=== PATIENT | female | born 1950 | race Caucasian/White ===

== ENCOUNTER → 2016-04-06 | Day surgery (SDC) | payer MEDICARE, BC ==
[~2016-04-06] VITALS: Ht 167.6 cm; Wt 133.8 kg
[~2016-04-06] MED LIST: BENA25CA4 PO; DOXY50CA26 PO; EXCETAB81 PO; FAMO40TA3 PO; LIDOCAINE 2% INJ 100 MG/5 ML SDV (FOR ANES.) As Ordered ONE; LR 1,000 ML IV SCH; MELO7.5T6 PO; NS 1,000 ML IV SCH; PROPOFOL 200 MG/20 ML VIAL As Ordered ONE
--- NOTE | 2016-04-06 16:23 | ROOR ---
Patient Name: Esther Vasquez Procedure Date: 04/06/2016 2:53 PM Date of : 1950 Age: 65 Gender: Female Note Status: Finalized Procedure: Upper GI endoscopy Indications: Heartburn Providers: Robert Barcenas DO Referring MD: Robert Barcenas DO Requesting Provider: Medicines: Propofol per Anesthesia Complications: No immediate complications. Procedure: Pre-Anesthesia Assessment: - Prior to the procedure, a History and Physical was performed, and patient medications and allergies were reviewed. The patient is competent. The risks and benefits of the procedure and the sedation options and risks were discussed with the patient. All questions were answered and informed consent was obtained. Patient identification and proposed procedure were verified by the physician, the nurse, the department clinician and the packaging technician in the procedure room. Mental Status Examination: alert and oriented. Airway Examination: normal oropharyngeal airway and neck mobility. Respiratory Examination: clear to auscultation. CV Examination: normal. Prophylactic Antibiotics: The patient does not require prophylactic antibiotics. Prior Anticoagulants: The patient has taken no previous anticoagulant or antiplatelet agents. ASA Grade Assessment: II - A patient with mild systemic disease. After reviewing the risks and benefits, the patient was deemed in satisfactory condition to undergo the procedure. The anesthesia plan was to use monitored anesthesia care (MAC). Immediately prior to administration of medications, the patient was re-assessed for adequacy to receive sedatives. The heart rate, respiratory rate, oxygen saturations, blood pressure, adequacy of pulmonary ventilation, and response to care were monitored throughout the procedure. The physical status of the patient was re-assessed after the procedure. The Endoscope was introduced through the mouth, and advanced to the second part of duodenum. The upper GI endoscopy was accomplished without difficulty. The patient tolerated the procedure well. Findings: Moderately severe esophagitis with bleeding was found. Biopsies were taken with a cold forceps for histology. Scattered mild inflammation characterized by adherent blood, congestion (edema) and erosions was found in the entire examined stomach. Biopsies were taken with a cold forceps for Helicobacter pylori testing. The exam was otherwise without abnormality. Impression: - Moderately severe reflux esophagitis. Biopsied. - Gastritis. Biopsied. - The examination was otherwise normal. Recommendation: - Patient has a contact number available for emergencies. The signs and symptoms of potential delayed complications were discussed with the patient. Return to normal activities tomorrow. Written discharge instructions were provided to the patient. - Telephone my office for pathology results in 1 week. - Return to my office in 2 weeks. - Use Prilosec (omeprazole) 20 mg PO BID. - Use sucralfate tablets 1 gram PO QID. Robert Barcenas DO 04/06/2016 4:23:13 PM This report has been signed electronically. Number of Addenda: 0 Note Initiated On: 04/06/2016 2:53 PM Estimated Blood Loss: Estimated blood loss was minimal.
--- NOTE | 2016-04-06 16:26 | ROOR ---
Patient Name: Esther Vasquez Procedure Date: 04/06/2016 2:55 PM Date of : 1950 Age: 65 Gender: Female Note Status: Finalized Procedure: Colonoscopy Indications: Screening for colorectal malignant neoplasm Providers: Robert Barcenas DO Referring MD: Robert Barcenas DO Requesting Provider: Medicines: Propofol per Anesthesia Complications: No immediate complications. Procedure: Pre-Anesthesia Assessment: - Prior to the procedure, a History and Physical was performed, and patient medications and allergies were reviewed. The patient is competent. The risks and benefits of the procedure and the sedation options and risks were discussed with the patient. All questions were answered and informed consent was obtained. Patient identification and proposed procedure were verified by the physician, the nurse, the soil surveyor and the finishing lab technician in the procedure room. Mental Status Examination: alert and oriented. Airway Examination: normal oropharyngeal airway and neck mobility. Respiratory Examination: clear to auscultation. CV Examination: normal. Prophylactic Antibiotics: The patient does not require prophylactic antibiotics. Prior Anticoagulants: The patient has taken no previous anticoagulant or antiplatelet agents. ASA Grade Assessment: II - A patient with mild systemic disease. After reviewing the risks and benefits, the patient was deemed in satisfactory condition to undergo the procedure. The anesthesia plan was to use monitored anesthesia care (MAC). Immediately prior to administration of medications, the patient was re-assessed for adequacy to receive sedatives. The heart rate, respiratory rate, oxygen saturations, blood pressure, adequacy of pulmonary ventilation, and response to care were monitored throughout the procedure. The physical status of the patient was re-assessed after the procedure. The Colonoscope was introduced through the anus and advanced to the cecum, identified by the appendiceal orifice, ileocecal valve and palpation. The colonoscopy was performed without difficulty. The patient tolerated the procedure well. Findings: Multiple small-mouthed diverticula were found in the sigmoid colon. The exam was otherwise without abnormality on direct and retroflexion views. Impression: - Diverticulosis in the sigmoid colon. - The examination was otherwise normal on direct and retroflexion views. - No specimens collected. Recommendation: - Patient has a contact number available for emergencies. The signs and symptoms of potential delayed complications were discussed with the patient. Return to normal activities tomorrow. Written discharge instructions were provided to the patient. Robert Barcenas DO 04/06/2016 4:25:33 PM This report has been signed electronically. Number of Addenda: 0 Note Initiated On: 04/06/2016 2:55 PM Estimated Blood Loss: Estimated blood loss: none.
[2016-04-06 17:00] VITALS: BP 156/82
== END | disposition home or self-care (01) ==
LOC: M SDC 12:59
PROVIDERS: ATTEND Surgery
DX: Z12.11 Encounter for screening for malignant neoplasm of colon (principal); K57.30 Diverticulosis of large intestine without perforation or abscess without bleeding; R12 Heartburn; K20.8 Other esophagitis; K29.71 Gastritis, unspecified, with bleeding; I10 Essential (primary) hypertension; R01.1 Cardiac murmur, unspecified; G89.29 Other chronic pain; R06.83 Snoring; M12.9 Arthropathy, unspecified; C44.90 Unspecified malignant neoplasm of skin, unspecified; Z88.0 Allergy status to penicillin; Z91.030 Bee allergy status; Z91.09 Other allergy status, other than to drugs and biological substances; Z91.041 Radiographic dye allergy status; Z91.018 Allergy to other foods; Z90.710 Acquired absence of both cervix and uterus; Z96.652 Presence of left artificial knee joint; Z79.899 Other long term (current) drug therapy; Z87.448 Personal history of other diseases of urinary system
CPT/HCPCS: 43239; 88305; G0121

== ENCOUNTER → 2016-07-26 | Outpatient (CLI) | payer MEDICARE ==
[~2016-07-26] MED LIST changes: +E-Z-GAS II EFFERVESCENT PACKET (SODIUM BICARB./CITRIC ACID/SIMETHICONE) As Ordered ONE; +E-Z-HD 98% w/w 340GM SUSP BTL As Ordered ONE; +E-Z-PAQUE 96% w/w SUSP 176GM BTL As Ordered ONE; -LIDOCAINE 2% INJ 100 MG/5 ML SDV (FOR ANES.) As Ordered ONE; -LR 1,000 ML IV SCH; -NS 1,000 ML IV SCH; -PROPOFOL 200 MG/20 ML VIAL As Ordered ONE
--- NOTE | 2016-07-26 17:00 | REP ---
UPPER GI, AIR CONTRAST: The procedure was performed under the direct supervision of Dr. Hernandes. The images were reviewed with Dr. Hernandes. The two needle machine operator film shows no organomegaly or pathological masses. The intestinal gas pattern is nonspecific. There are surgical clips noted in the right upper extremity. Liquid barium and gas-producing granules were given in the erect position as well as liquid barium in the prone oblique position in order to perform a double-contrast upper GI examination. The oral and pharyngeal stages of deglutition are unremarkable. Esophageal transport is prompt and efficient. In the distal esophagus there is mucosal irregularity. This likely represents moderate reflux esophagitis. There is a hiatal hernia present. There is significant gastroesophageal reflux demonstrated to above the level of the leobardo. The stomach vela are normally outlined. The rugal folds are smooth and regular. There is no gastritis, neoplasm, or ulcer disease. The duodenal vela are normally outlined. The mucosal folds are smooth and regular. There is no duodenitis, pancreatitis, peptic ulcer disease, or neoplasm. The visualized portion of the proximal small bowel appears normal in course and caliber. IMPRESSION: In the distal esophagus there is mucosa irregularity which likely represents moderate reflux esophagitis. There is a hiatal hernia present. There is significant gastroesophageal reflux demonstrated to above the level of the leobardo. 2 minutes and 29 seconds of fluoroscopic time was utilized for this procedure. Reviewed by NAYANA Monet 07/26/2016 05:21 PEdited and Signed by Andi Hernandes MD 07/27/2016 10:18 A
== END ==
LOC: M RAD 09:09
PROVIDERS: ATTEND Surgery
DX: K21.9 Gastro-esophageal reflux disease without esophagitis (principal); K44.9 Diaphragmatic hernia without obstruction or gangrene

== ENCOUNTER → 2016-08-01 | Outpatient (CLI) | payer MEDICARE ==
[~2016-08-01] VITALS: Ht 166.4 cm; Wt 135.2 kg
[~2016-08-01] MED LIST changes: -E-Z-GAS II EFFERVESCENT PACKET (SODIUM BICARB./CITRIC ACID/SIMETHICONE) As Ordered ONE; -E-Z-HD 98% w/w 340GM SUSP BTL As Ordered ONE; -E-Z-PAQUE 96% w/w SUSP 176GM BTL As Ordered ONE; +LIDOCAINE 2% INJ 100 MG/5 ML SDV (FOR ANES.) As Ordered ONE; +NS 1,000 ML IV ONE; +PROPOFOL 200 MG/20 ML VIAL As Ordered ONE
--- NOTE | 2016-08-01 10:46 | ROOR ---
Patient Name: Esther Vasquez Procedure Date: 08/01/2016 10:30 AM Date of : 1950 Age: 66 Room: [facility] Gender: Female Note Status: Finalized Procedure: Upper GI endoscopy Indications: Heartburn, Follow-up of gastritis Providers: DO Kendall Almeida MD: MILTON Melara Requesting Provider: Medicines: Propofol per Anesthesia Complications: No immediate complications. Procedure: Pre-Anesthesia Assessment: - Prior to the procedure, a History and Physical was performed, and patient medications and allergies were reviewed. The patient is competent. The risks and benefits of the procedure and the sedation options and risks were discussed with the patient. All questions were answered and informed consent was obtained. Patient identification and proposed procedure were verified by the physician, the nurse, the anesthesiologist and the industrial technician in the endoscopy suite. Mental Status Examination: alert and oriented. Airway Examination: normal oropharyngeal airway and neck mobility. Respiratory Examination: clear to auscultation. CV Examination: normal. Prophylactic Antibiotics: The patient does not require prophylactic antibiotics. Prior Anticoagulants: The patient has taken no previous anticoagulant or antiplatelet agents. ASA Grade Assessment: II - A patient with mild systemic disease. After reviewing the risks and benefits, the patient was deemed in satisfactory condition to undergo the procedure. The anesthesia plan was to use monitored anesthesia care (MAC). Immediately prior to administration of medications, the patient was re-assessed for adequacy to receive sedatives. The heart rate, respiratory rate, oxygen saturations, blood pressure, adequacy of pulmonary ventilation, and response to care were monitored throughout the procedure. The physical status of the patient was re-assessed after the procedure. The Endoscope was introduced through the mouth, and advanced to the second part of duodenum. The upper GI endoscopy was accomplished without difficulty. The patient tolerated the procedure well. Findings: LA Grade A (one or more mucosal breaks less than 5 mm, not extending between tops of 2 mucosal folds) esophagitis with no bleeding was found. Diffuse mild inflammation characterized by congestion (edema) and linear erosions was found in the prepyloric region of the stomach. A small hiatal hernia was present. Estimated blood loss: none. Impression: - LA Grade A esophagitis. - Gastritis. - Small hiatal hernia. - No specimens collected. Recommendation: - Patient has a contact number available for emergencies. The signs and symptoms of potential delayed complications were discussed with the patient. Return to normal activities tomorrow. Written discharge instructions were provided to the patient. - Return to my office PRN. Robert Barcenas DO 08/01/2016 10:45:57 AM This report has been signed electronically. Number of Addenda: 0 Note Initiated On: 08/01/2016 10:30 AM Estimated Blood Loss: Estimated blood loss: none.
[2016-08-01 11:10] VITALS: BP 148/92
== END | disposition home or self-care (01) ==
LOC: M OPP 09:34
PROVIDERS: ATTEND Surgery
DX: R10.13 Epigastric pain (principal); R12 Heartburn; K29.70 Gastritis, unspecified, without bleeding; K44.9 Diaphragmatic hernia without obstruction or gangrene; K21.0 Gastro-esophageal reflux disease with esophagitis; D69.3 Immune thrombocytopenic purpura; R01.1 Cardiac murmur, unspecified; I12.0 Hypertensive chronic kidney disease with stage 5 chronic kidney disease or end stage renal disease; I34.1 Nonrheumatic mitral (valve) prolapse; K57.92 Diverticulitis of intestine, part unspecified, without perforation or abscess without bleeding; Z87.19 Personal history of other diseases of the digestive system; M19.90 Unspecified osteoarthritis, unspecified site; Z85.828 Personal history of other malignant neoplasm of skin; N18.6 End stage renal disease; Z91.030 Bee allergy status; Z91.041 Radiographic dye allergy status; Z91.013 Allergy to seafood; Z88.0 Allergy status to penicillin; Z79.899 Other long term (current) drug therapy; Z80.8 Family history of malignant neoplasm of other organs or systems

== ENCOUNTER → 2020-10-06 | Outpatient (CLI) | payer MEDICARE ==
[~2020-10-06] MED LIST changes: +DOXY1CAP60 PO; -DOXY50CA26 PO; -LIDOCAINE 2% INJ 100 MG/5 ML SDV (FOR ANES.) As Ordered ONE; -MELO7.5T6 PO; +MELO7.5T7 PO; -NS 1,000 ML IV ONE; +PROHANCE 279.3MG/ML 15ML VIAL As Ordered ONE; +PROHANCE 279.3MG/ML 5ML VIAL As Ordered ONE; -PROPOFOL 200 MG/20 ML VIAL As Ordered ONE
--- NOTE | 2020-10-06 19:50 | REPVR ---
PROCEDURE INFORMATION: Exam: MR Head Without and With Contrast Exam date and time: 10/06/2020 10:52 AM Age: 70 years old Clinical indication: Pain; Headache; Tension; Patient HX: Occipital neuralgia TECHNIQUE: Imaging protocol: MR of the head without and with intravenous contrast. Contrast material: PROHANCE; Contrast volume: 20 ml; Contrast route: INTRAVENOUS (IV); COMPARISON: No relevant prior studies available. FINDINGS: Age-related volume loss. Major vascular flow voids at the skull base are preserved. No extra-axial fluid collection. No midline shift or intracranial mass effect. Nonspecific white matter gliosis, probable chronic microvascular ischemia. No cerebral edema. No diffusion restriction. No pathologic intracranial enhancement. Visualized paranasal sinuses and mastoid air cells are clear. IMPRESSION: No acute intracranial abnormality. Electronically signed by: Eder Shoemaker On 10/06/2020 19:50:28 PM
== END ==
LOC: M RAD 09:02
PROVIDERS: ATTEND Physician Assistant
DX: M54.81 Occipital neuralgia (principal)
CPT/HCPCS: 70553; A9576

== ENCOUNTER → 2021-06-21 | Outpatient (CLI) | payer MEDICARE ==
[~2021-06-21] MED LIST changes: -DOXY1CAP60 PO; +DOXY50CA51 PO; -PROHANCE 279.3MG/ML 15ML VIAL As Ordered ONE; -PROHANCE 279.3MG/ML 5ML VIAL As Ordered ONE
== END ==
LOC: M CARPUL 13:26
PROVIDERS: ATTEND Internal Medicine Cardiovascular Disease
DX: R06.00 Dyspnea, unspecified (principal); I35.8 Other nonrheumatic aortic valve disorders

== ENCOUNTER 2021-07-09 17:12 | Emergency (ER) | payer MEDICARE ==
[~2021-07-09] VITALS: Ht 165.1 cm; Wt 150.4 kg
[2021-07-09 17:13] VITALS: BP 145/80
[2021-07-09] MEDS ORDERED: HYDR-3490 PO (17:30)
[2021-07-09] MEDS ORDERED: MELO7.5T35 PO (17:30)
[2021-07-09] MEDS ORDERED: LIDOCAINE W/EPINEPHRINE 1% 20ML VIAL SC ONE (19:05)
[2021-07-09] MEDS ORDERED: BOOSTRIX/ADACEL VACCINE (DIPHTH/PERTUSS/ACELL/TETANUS) 0.5ML SYR IM ONE (19:05)
[2021-07-09] MEDS ORDERED: CEPH500C PO (19:43)
[2021-07-09] MEDS ORDERED: CEPHALEXIN 500 MG CAP PO ONE (19:45)
== END 2021-07-09 20:22 | disposition home or self-care (01) ==
LOC: M ED 17:12
DX: S81.812A Laceration without foreign body, left lower leg, initial encounter (principal); W22.8XXA Striking against or struck by other objects, initial encounter; Y92.524 Gas station as the place of occurrence of the external cause; Y93.9 Activity, unspecified; Y99.9 Unspecified external cause status; I10 Essential (primary) hypertension; E66.9 Obesity, unspecified; Z91.89 Other specified personal risk factors, not elsewhere classified; Z88.0 Allergy status to penicillin

== ENCOUNTER → 2021-10-20 | Outpatient (CLI) | payer MEDICARE ==
[~2021-10-20] MED LIST changes: +CEPH500C PO; +HYDR-3490 PO; +MELO7.5T35 PO
== END ==
LOC: M RAD 11:27
PROVIDERS: ATTEND Internal Medicine Pulmonary Disease
DX: R91.8 Other nonspecific abnormal finding of lung field (principal); I25.10 Atherosclerotic heart disease of native coronary artery without angina pectoris

== ENCOUNTER → 2021-11-14 | Outpatient (CLI) | payer MEDICARE ==
[~2021-11-14] MED LIST changes: +METHACHOLINE KIT (J7674) INH ONE
== END ==
LOC: M CARPUL 10:49
PROVIDERS: ATTEND Internal Medicine Pulmonary Disease
DX: R06.00 Dyspnea, unspecified (principal)
CPT/HCPCS: 94070; 95070; J7674

== ENCOUNTER 2022-12-05 09:28 | Day surgery (SDC) | payer MEDICARE ==
[~2022-12-05] VITALS: Ht 165.1 cm; Wt 147.5 kg
[~2022-12-05 09:28] MED LIST changes: +BSS IRRIG/VANCO(10MG)/TOBRA(5MG)/EPINEPH(1:1000-0.5CC)500ML BAG-ORONLY IR ONE; +CEFUROXIME 1MG/0.1ML INTRACAMERAL INJ As Ordered ONE; +CYCLOPENTOLATE 1% OPHTH SOLN 2ML BTL OD SCH; +LIDOCAINE 1% SDV 5ML VIAL As Ordered ONE; +LIDOCAINE 3.5 % 1ML OPHTH TOPICAL GEL OU ONE; -METHACHOLINE KIT (J7674) INH ONE; +OFLOXACIN 0.3 % (OCUFLOX) OPTH SOL 5ML OD ONE; +PHENYLEPHRINE 10% OPHTH SOL 5ML OD PRN; +PHENYLEPHRINE 2.5% OPHTH SOL 2ML OD SCH; +TROPICAMIDE 1% OPHTH SOLN 15ML OD SCH; +TUMS500C PO
[2022-12-05] MEDS ORDERED: MIDAZOLAM INJ 2MG/2ML VIAL As Ordered ONE (10:03)
[2022-12-05] MEDS ORDERED: fentaNYL 100 MCG/2 ML INJECTION As Ordered ONE (10:03)
[2022-12-05 12:25] VITALS: BP 172/79; TEMP 96.9; O2SAT 98
== END 2022-12-05 12:25 | disposition home or self-care (01) ==
LOC: M SDC 09:28
PROVIDERS: ATTEND Ophthalmology
DX: H25.11 Age-related nuclear cataract, right eye (principal); H57.03 Miosis; I10 Essential (primary) hypertension; K57.92 Diverticulitis of intestine, part unspecified, without perforation or abscess without bleeding; K21.9 Gastro-esophageal reflux disease without esophagitis; U09.9 Post COVID-19 condition, unspecified; Z79.899 Other long term (current) drug therapy; Z88.0 Allergy status to penicillin
CPT/HCPCS: 66982; J0697; J2250; J3010; V2632

== ENCOUNTER 2022-12-19 09:19 | Day surgery (SDC) | payer MEDICARE ==
[~2022-12-19] VITALS: Ht 165.1 cm; Wt 142.5 kg
[~2022-12-19 09:19] MED LIST changes: -CEFUROXIME 1MG/0.1ML INTRACAMERAL INJ As Ordered ONE; -CYCLOPENTOLATE 1% OPHTH SOLN 2ML BTL OD SCH; +CYCLOPENTOLATE 1% OPHTH SOLN 2ML BTL OS SCH; +CYCLOPENTOLATE 1% OPHTH SOLN 2ML BTL OU SCH; +MIDAZOLAM INJ 2MG/2ML VIAL As Ordered ONE; -OFLOXACIN 0.3 % (OCUFLOX) OPTH SOL 5ML OD ONE; +OFLOXACIN 0.3 % (OCUFLOX) OPTH SOL 5ML OS ONE; +OFLOXACIN 0.3 % (OCUFLOX) OPTH SOL 5ML OU ONE; -PHENYLEPHRINE 10% OPHTH SOL 5ML OD PRN; +PHENYLEPHRINE 10% OPHTH SOL 5ML OS PRN; +PHENYLEPHRINE 10% OPHTH SOL 5ML OU PRN; -PHENYLEPHRINE 2.5% OPHTH SOL 2ML OD SCH; +PHENYLEPHRINE 2.5% OPHTH SOL 2ML OS SCH; +PHENYLEPHRINE 2.5% OPHTH SOL 2ML OU SCH; -TROPICAMIDE 1% OPHTH SOLN 15ML OD SCH; +TROPICAMIDE 1% OPHTH SOLN 15ML OS SCH; +TROPICAMIDE 1% OPHTH SOLN 15ML OU SCH; +fentaNYL 100 MCG/2 ML INJECTION As Ordered ONE
[2022-12-19] MEDS ORDERED: ONDA4TAB6 PO (09:45)
[2022-12-19] MEDS ORDERED: POVIDONE-IODINE 5% OPHTH PREP SOL 30ML As Ordered ONE (09:48)
[2022-12-19 10:55] VITALS: BP 152/80; TEMP 97.2; O2SAT 99
== END 2022-12-19 11:25 | disposition home or self-care (01) ==
LOC: M SDC 09:19
PROVIDERS: ATTEND Ophthalmology
DX: H59.029 Cataract (lens) fragments in eye following cataract surgery, unspecified eye (principal); H25.12 Age-related nuclear cataract, left eye; I10 Essential (primary) hypertension; K57.92 Diverticulitis of intestine, part unspecified, without perforation or abscess without bleeding; U09.9 Post COVID-19 condition, unspecified; Z79.899 Other long term (current) drug therapy; Z88.0 Allergy status to penicillin; Z91.018 Allergy to other foods
CPT/HCPCS: 66840; 66984; J2250; J3010; V2632

== ENCOUNTER 2023-01-22 12:44 | Emergency (ER) | payer MEDICARE ==
[~2023-01-22] VITALS: Ht 165.1 cm; Wt 136.4 kg
[~2023-01-22 12:44] MED LIST changes: -BSS IRRIG/VANCO(10MG)/TOBRA(5MG)/EPINEPH(1:1000-0.5CC)500ML BAG-ORONLY IR ONE; -CYCLOPENTOLATE 1% OPHTH SOLN 2ML BTL OS SCH; -CYCLOPENTOLATE 1% OPHTH SOLN 2ML BTL OU SCH; -LIDOCAINE 1% SDV 5ML VIAL As Ordered ONE; -LIDOCAINE 3.5 % 1ML OPHTH TOPICAL GEL OU ONE; -MIDAZOLAM INJ 2MG/2ML VIAL As Ordered ONE; -OFLOXACIN 0.3 % (OCUFLOX) OPTH SOL 5ML OS ONE; -OFLOXACIN 0.3 % (OCUFLOX) OPTH SOL 5ML OU ONE; +ONDA4TAB6 PO; -PHENYLEPHRINE 10% OPHTH SOL 5ML OS PRN; -PHENYLEPHRINE 10% OPHTH SOL 5ML OU PRN; -PHENYLEPHRINE 2.5% OPHTH SOL 2ML OS SCH; -PHENYLEPHRINE 2.5% OPHTH SOL 2ML OU SCH; -TROPICAMIDE 1% OPHTH SOLN 15ML OS SCH; -TROPICAMIDE 1% OPHTH SOLN 15ML OU SCH; -fentaNYL 100 MCG/2 ML INJECTION As Ordered ONE
[2023-01-22] MEDS ORDERED: FLUORESCEIN OPHTH 1MG STRIP OD ONE (13:30)
[2023-01-22] MEDS ORDERED: TETRACAINE 0.5% OPHTH SOLN 4ML OD ONE (13:30)
[2023-01-22] MEDS ORDERED: METOCLOPRAMIDE INJ 10MG/2ML VIAL IV ONE ×2 (14:20→16:20)
[2023-01-22] MEDS: MORPHINE 2 MG/ML 1ML VIAL IV PRN ×2 (14:27→15:33)
[2023-01-22 14:35] LABS: BASO % 0.7 % (0.0-1.0); EOS % 0.5 % (0.0-3.0); HEMATOCRIT 42.8 % (36.0-47.0); LYMPH # 2.1 10^3/uL (1.5-5.0); LYMPH % 36.1 % (24.0-44.0); MEAN CORPUSCULAR HEMOGLOBIN 28.7 pg (27.0-33.0); MEAN CORPUSCULAR HGB CONC 32.7 g/dl (32.0-36.5); MEAN CORPUSCULAR VOLUME 87.7 fl (80.0-96.0); MONO # 0.5 10^3/uL (0.0-0.8); MONO % 8.2 % (2.0-8.0); NEUTROPHILS # 3.2 10^3/uL (1.5-8.5); NEUTROPHILS % 54.2 % (36.0-66.0); RED BLOOD COUNT 4.88 10^6/uL (4.00-5.40); WHITE BLOOD COUNT 5.9 10^3/uL (4.0-10.0)
[2023-01-22] MEDS ORDERED: BRIM5DRO4 (14:40)
[2023-01-22 14:44] LABS: INR 1.1; PARTIAL THROMBOPLASTIN TIME 24.8 SECONDS (24.8-34.2); PROTHROMBIN TIME 13.9 SECONDS (12.5-14.5)
[2023-01-22 14:51] LABS: PLATELET COUNT, AUTOMATED 89 10^3/uL (150-450)
[2023-01-22 14:57] LABS: ERYTHROCYTE SEDIMENTATION RATE 110 mm/hr (0-30)
[2023-01-22 15:04] LABS: BLOOD UREA NITROGEN 15 MG/DL (9-23); CALCIUM LEVEL 9.6 MG/DL (8.3-10.6); CARBON DIOXIDE LEVEL 28 MMOL/L (20-31); CHLORIDE LEVEL 101 MMOL/L (98-107); CREATININE FOR GFR 0.88 MG/DL (0.55-1.30); GLOMERULAR FILTRATION RATE > 60.0 (>39); GLUCOSE, FASTING 94 MG/DL (74-106); POTASSIUM SERUM 4.3 MMOL/L (3.5-5.1); SODIUM LEVEL 137 MMOL/L (136-145)
[2023-01-22 16:01] LABS: C REACTIVE PROTEIN QUANTITATIV < 0.40 MG/DL (<1.0)
[2023-01-22] MEDS ORDERED: diphenhydrAMINE 50MG/ML VIAL IV ONE (16:20)
[2023-01-22] MEDS ORDERED: NS 1,000 ML IV ONE (16:20)
[2023-01-22] MEDS ORDERED: ACETAMINOPHEN 500 MG TAB PO ONE (16:20)
[2023-01-22] MEDS ORDERED: methylPREDNISolone 125MG 2ML VIAL IV ONE (16:20)
[2023-01-22] MEDS ORDERED: valACYclovir HCL 500 MG TAB PO ONE (16:40)
[2023-01-22] MEDS ORDERED: KETOROLAC 30 MG/ML 1ML VIAL IV ONE (17:00)
[2023-01-22] MEDS ORDERED: GABAPENTIN 300 MG CAP PO ONE (17:35)
[2023-01-22] MEDS ORDERED: MAG SULF 1GM/100ML (MAG RUN) 1 GM in IV 1 EA IV ONE (17:35)
[2023-01-22 19:01] VITALS: BP 190/87
[2023-01-22] MEDS ORDERED: PRED10TA2 PO ×2 (19:04→20:01)
[2023-01-22] MEDS ORDERED: NEUR100C PO (19:06)
[2023-01-22] MEDS ORDERED: REGL10TA6 PO (19:06)
[2023-01-22 19:33] VITALS: TEMP 97.8; O2SAT 95
== END 2023-01-22 19:42 | disposition home or self-care (01) ==
LOC: M ED 12:44
DX: G44.059 Short lasting unilateral neuralgiform headache with conjunctival injection and tearing (SUNCT), not intractable (principal); I10 Essential (primary) hypertension; F10.10 Alcohol abuse, uncomplicated; Z88.0 Allergy status to penicillin; Z88.8 Allergy status to other drugs, medicaments and biological substances; Z91.048 Other nonmedicinal substance allergy status; Z79.891 Long term (current) use of opiate analgesic; Z79.83 Long term (current) use of bisphosphonates; Z79.52 Long term (current) use of systemic steroids; Z79.899 Other long term (current) drug therapy
CPT/HCPCS: 36415; 70450; 80048; 85025; 85049; 85055; 85610; 85652; 85730; 86140; 87486; 87581; 87633; 87798; 93005; 94760; 96365; 96366; 96375; 96376; 99285; J1200; J1885; J2765; J2930; J3475

== ENCOUNTER → 2023-03-11 | Outpatient (CLI) | payer MEDICARE ==
[~2023-03-11] MED LIST changes: +BRIM5DRO4; +NEUR100C PO; +PRED10TA2 PO; +REGL10TA6 PO
== END ==
LOC: M RAD 14:10
PROVIDERS: ATTEND Internal Medicine Pulmonary Disease
DX: R91.8 Other nonspecific abnormal finding of lung field (principal); I70.0 Atherosclerosis of aorta; I25.10 Atherosclerotic heart disease of native coronary artery without angina pectoris; K44.9 Diaphragmatic hernia without obstruction or gangrene; Z90.49 Acquired absence of other specified parts of digestive tract

== ENCOUNTER → 2024-03-19 | Outpatient (CLI) | payer MEDICARE ==
[~2024-03-19] MED LIST changes: +DOXY50CA50 PO; -DOXY50CA51 PO; +ONDA-282 PO; -ONDA4TAB6 PO
== END ==
LOC: M PLAIMG 10:58
PROVIDERS: ATTEND Internal Medicine Pulmonary Disease
DX: R91.8 Other nonspecific abnormal finding of lung field (principal)

== ENCOUNTER → 2024-05-18 | Outpatient (CLI) | payer MEDICARE | LOC: M PLARAD 14:26 | PROVIDERS: ATTEND Internal Medicine Pulmonary Disease | DX: R91.1 Solitary pulmonary nodule (principal) | CPT/HCPCS: 78815; A9552 ==

== ENCOUNTER → 2024-09-15 | Outpatient (CLI) | payer MEDICARE ==
[~2024-09-15] MED LIST changes: +FURO20TA2 PO; +PREDOPD OD
== END ==
LOC: M PLAIMG 13:47
PROVIDERS: ATTEND Internal Medicine Pulmonary Disease
DX: R91.8 Other nonspecific abnormal finding of lung field (principal); K44.9 Diaphragmatic hernia without obstruction or gangrene; I25.10 Atherosclerotic heart disease of native coronary artery without angina pectoris

== ENCOUNTER 2024-10-28 07:34 | Day surgery (SDC) | payer MEDICARE ==
[~2024-10-28] VITALS: Ht 165.1 cm; Wt 152.7 kg
[2024-10-28] MEDS: ALBUTEROL SULFATE 2.5 MG/0.5 ML INH CONCENTRATE NEB SOLN INH ONE (06:00)
[2024-10-28] MEDS: LIDOCAINE PRES-FREE 2% 10 ML AMP INH ONE (06:00)
[2024-10-28] MEDS: THROMBIN 5,000 UNITS VIAL As Ordered ONE (07:10)
[~2024-10-28 07:34] MED LIST changes: +SYST1SOL4 OP; +VALT1TAB PO
[2024-10-28] MEDS ORDERED: ONDANSETRON 4MG 2ML VIAL As Ordered ONE (07:48)
[2024-10-28] MEDS ORDERED: dexAMETHasone 4 MG/ML 1 ML VIAL As Ordered ONE (07:48)
[2024-10-28] MEDS ORDERED: ROCURONIUM BROMIDE 50MG/5ML VIAL As Ordered ONE (07:48)
[2024-10-28] MEDS ORDERED: LIDOCAINE 2% 100 MG/5 ML SDV (FOR ANES.) As Ordered ONE (07:48)
[2024-10-28] MEDS ORDERED: MIDAZOLAM INJ 2 MG/2 ML VIAL As Ordered ONE (07:48)
[2024-10-28] MEDS ORDERED: ACETAMINOPHEN 1000MG/100ML IV BAG As Ordered ONE (07:49)
[2024-10-28] MEDS ORDERED: dexmedeTOMIDine (4 MCG/ML) 200 MCG/50 ML BTL As Ordered ONE (07:49)
[2024-10-28] MEDS ORDERED: SUGAMMADEX SODIUM 500 MG/5 ML VIAL As Ordered ONE (07:52)
[2024-10-28] MEDS: LR 1,000 ML IV SCH (08:10)
[2024-10-28] MEDS: SCOPOLAMINE 1MG TRANSDERMAL PATCH TOP ONE (08:50)
[2024-10-28] MEDS: CETACAINE SPRAY 5 GM As Ordered ONE (09:22)
[2024-10-28] MEDS ORDERED: SUCCINYLCHOLINE 100MG/5ML SYRINGE As Ordered ONE (09:28)
[2024-10-28] MEDS: EPINEPHrine 1 MG/10 ML SYRINGE 1.5IN As Ordered ONE (10:15)
[2024-10-28] MEDS ORDERED: ONDANSETRON 4MG 2ML VIAL IV PRN (10:50)
[2024-10-28 11:43] VITALS: BP 152/70; TEMP 97.6; O2SAT 97
== END 2024-10-28 12:55 | disposition home or self-care (01) ==
LOC: M SDC 07:34
PROVIDERS: ATTEND Internal Medicine Pulmonary Disease
DX: J84.10 Pulmonary fibrosis, unspecified (principal); I10 Essential (primary) hypertension; D69.3 Immune thrombocytopenic purpura; E66.9 Obesity, unspecified; Z79.1 Long term (current) use of non-steroidal anti-inflammatories (NSAID); Z79.899 Other long term (current) drug therapy; Z88.0 Allergy status to penicillin; Z91.048 Other nonmedicinal substance allergy status; Z88.8 Allergy status to other drugs, medicaments and biological substances
CPT/HCPCS: 31623; 31627; 31654; 71045; 76000; 88104; 88305; 93005; C1601; J0131; J0168; J0330; J1100; J2250; J2405; J2765; J3010

== ENCOUNTER → 2024-11-24 | Outpatient (CLI) | payer MEDICARE ==
[~2024-11-24] MED LIST changes: +E-Z-GAS II EFFERVESCENT PACKET (SODIUM BICARB./CITRIC ACID/SIMETHICONE) As Ordered ONE; +E-Z-HD 98% w/w 340 GM SUSP BTL As Ordered ONE; +E-Z-PAQUE 96% w/w SUSP 176 GM BTL As Ordered ONE
== END ==
LOC: M RAD 08:13
PROVIDERS: ATTEND Physician Assistant
DX: K22.2 Esophageal obstruction (principal); K44.9 Diaphragmatic hernia without obstruction or gangrene; K21.9 Gastro-esophageal reflux disease without esophagitis

== ENCOUNTER 2024-12-30 11:14 | Day surgery (SDC) | payer MEDICARE ==
[~2024-12-30] VITALS: Ht 165.1 cm; Wt 152.7 kg
[~2024-12-30 11:14] MED LIST changes: -E-Z-GAS II EFFERVESCENT PACKET (SODIUM BICARB./CITRIC ACID/SIMETHICONE) As Ordered ONE; -E-Z-HD 98% w/w 340 GM SUSP BTL As Ordered ONE; -E-Z-PAQUE 96% w/w SUSP 176 GM BTL As Ordered ONE; +LEVO25TA5 PO; +NS 250 ML IV ONE
[2024-12-30] MEDS ORDERED: GLYCOPYRROLATE INJ 0.2 MG/ML 2 ML VIAL As Ordered ONE (11:20)
[2024-12-30] MEDS ORDERED: LIDOCAINE 2% 100 MG/5 ML SDV (FOR ANES.) As Ordered ONE (11:20)
[2024-12-30] MEDS: LR 1,000 ML IV SCH (12:16)
[2024-12-30] MEDS ORDERED: ONDANSETRON 4MG/2ML VIAL As Ordered ONE (12:26)
[2024-12-30 13:55] VITALS: BP 167/74; TEMP 97.1; O2SAT 97
== END 2024-12-30 14:00 | disposition home or self-care (01) ==
LOC: M SDC 11:14
PROVIDERS: ATTEND Surgery
DX: K22.2 Esophageal obstruction (principal); K29.70 Gastritis, unspecified, without bleeding; E03.9 Hypothyroidism, unspecified; Z87.19 Personal history of other diseases of the digestive system; R32 Unspecified urinary incontinence; Z79.890 Hormone replacement therapy; Z79.899 Other long term (current) drug therapy; D69.3 Immune thrombocytopenic purpura; Z85.828 Personal history of other malignant neoplasm of skin; Z90.49 Acquired absence of other specified parts of digestive tract; Z90.710 Acquired absence of both cervix and uterus; Z91.048 Other nonmedicinal substance allergy status; Z88.0 Allergy status to penicillin; Z88.8 Allergy status to other drugs, medicaments and biological substances; R91.8 Other nonspecific abnormal finding of lung field
CPT/HCPCS: 43249; J1596; J2405; J3010